=== PATIENT | male | born 1960 | race Caucasian/White ===

== ENCOUNTER 2017-02-27 10:07 | Day surgery (SDC) | payer BC ==
[~2017-02-27] VITALS: Ht 180.3 cm; Wt 99.6 kg
[2017-02-27] VITALS (9 sets, daily range): BP systolic 110–155; BP diastolic 74–88; PULSE 92–134; RESP 16–18; TEMP 97.9–98.7; O2SAT 92–97
[2017-02-27] MEDS ORDERED: SODIUM CHLORID 0.9% 500 ML BAG OTHER ONE (10:08)
[2017-02-27] MEDS ORDERED: SODIUM CHLORID 0.9% 500 ML INJ 500 ML IV SCH (12:00)
[2017-02-27 12:09] LABS: AUTOMATED NEUTROPHIL # 8.2 TH/MM3 (1.8-7.7); BASOPHIL % 0.4 % (0.0-2.0); EOSINOPHIL # 0.2 TH/MM3 (0-0.4); EOSINOPHIL % 1.8 % (0.0-4.0); HEMO FLAGS DIFF FINAL; LYMPH % 12.7 % (9.0-44.0); LYMPHOCYTE # 1.3 TH/MM3 (1.0-4.8); MEAN CELL VOLUME 95.8 FL (80.0-100.0); MEAN CORPUSCULAR HEMOGLOBIN 32.4 PG (27.0-34.0); MEAN CORPUSCULAR HGB CONC 33.8 % (32.0-36.0); MONO % 8.1 % (0.0-8.0); PLATELET COUNT 232 TH/MM3 (150-450); RED BLOOD COUNT 5.11 MIL/MM3 (4.50-5.90); RED CELL DISTRIBUTION WIDTH 13.6 % (11.6-17.2); WHITE BLOOD COUNT 10.6 TH/MM3 (4.0-11.0)
[2017-02-27] MEDS ORDERED: METOPROLOL TARTRATE 25 MG TAB PO PRN (12:15)
[2017-02-27] MEDS ORDERED: CHLORHEXIDINE GLUCONATE 2 % 1 PACK (2 CLOTHS) TOPICAL PRN (12:15)
[2017-02-27] MEDS ORDERED: POVIDONE IODINE 5% (ANTISEPSIS KIT) 4 APPLICATIONS EACH NARE PRN (12:15)
[2017-02-27] MEDS ORDERED: SODIUM CHLORID 0.9% 500 ML IV PRN (12:15)
[2017-02-27] MEDS ORDERED: LACTATED RINGER'S 1000 ML IV PRN (12:15)
[2017-02-27 12:23] LABS: APTT (PATIENT) 26.2 SEC (24.3-30.1)
[2017-02-27 12:28] LABS: POTASSIUM 4.7 MEQ/L (3.5-5.1)
[2017-02-27] MEDS ORDERED: ISOPROTERENOL HCL 1 MG/5 ML AMP ONE (13:24)
[2017-02-27] MEDS ORDERED: PROPOFOL 200 MG/20 ML AMP ONE (13:28)
[2017-02-27] MEDS ORDERED: SODIUM CHLOR 0.9% 250 ML INJ 250 ML ONE (13:28)
[2017-02-27] MEDS ORDERED: ALEV220T14 PO (13:46)
[2017-02-27] MEDS ORDERED: PRAV40TA2 PO (13:46)
[2017-02-27] MEDS ORDERED: OMEP20TA93 PO (13:46)
[2017-02-27] MEDS ORDERED: FURO1TAB62 PO (13:46)
[2017-02-27] MEDS ORDERED: LISI-515 PO (13:46)
[2017-02-27] MEDS ORDERED: XARE20TA PO (13:46)
[2017-02-27] MEDS ORDERED: KLOR10TA PO (13:46)
[2017-02-27] MEDS ORDERED: RESP: ALBUTEROL 2.5 MG/3 ML NEB (SCH) ONE (13:50)
[2017-02-27] MEDS ORDERED: HEPARIN-NS/PF INJ 1,000 ML ONE (14:22)
[2017-02-27] MEDS ORDERED: KETAMINE HCL 500 MG/10 ML VIAL ONE (14:40)
--- NOTE | 2017-02-27 16:37 | CATHPROC ---
[facility] HIS Report Study Information Study Number Admission Scheduled Start Study Start [id number] Feb 27 2017 10:07AM 02/27/2017 Feb 27 2017 11:30AM [facility] Electrophysiology Study Admit Source Facility Department Other [facility] - New Business Clerk Physician and Clinical Staff Initial Jessie Kern Medical Parasitologist Ann Patel,RT(R) TECH2 Other Anesthesia, AUTO ACCESSORIES INSTALLER Recorder Diana Alvarado,BSRN Recorder Lois Mauro,Angelia Sanchez,CASE MANAGER TECH2 Procedures Performed Procedure Ablation Procedure Equipment Time Hydrochloric Area Supervisor Description Size Mfg Part Number Used/Scraped BIOSENSE HORTON CATHETER, DEFLECTABLE [id number] 14:27 FR 7 Used INC. TRICUSPID/HALO XP *[id number] BIOSENSE HORTON CATHETER, DEFLECTABLE, 1MM, [id number] 14:27 FR 6 Used INC. D TYPE HEX *[id number] BIOSENSE HORTON CATHETER, DEFLECTABLE, 1MM, [id number] 14:27 FR 7 Used INC. D TYPE OCTA *[id number] [employer]/ EP CATHETER, FR8 BLAZER II 10MM [id number] 15:28 FR8 Used PACER LRG XP *[id number] 12:02 [employer] LEADWIRE, DEFIBRILLATION PAD 2001M-PC Used [id number] 12:02 [place] PACK, CCL CUSTOM * Used *[id number] 12:02 MEDLINE PACER CURRY, LIMB * 2530 *[id number] Used [id number] 12:02 [employer] BLANKET,WARM AIR CCL * Used *[id number] 14:28 [employer] MEDICAL CATHETER, JSN, QUAD FR 5 Used *[id number] 12:02 [employer] MEDICAL ELECTRODE KIT, [place] X SURFACE * [id number] [employer] MED[employer] SHEATH, EPS, FR7 FAST CATH FR 7 [id number] Used 12:04 [employer] MEDICAL SHEATH, EPS, FR7 FAST CATH FR [address] [id number] Used 12:04 [employer] MEDICAL SHEATH, EPS, FR7 FAST CATH FR [address] [id number] Used 14:15 [employer] MEDICAL SHEATH, EPS, FR7 FAST CATH FR 7 [id number] Used [id number] 12:04 [employer] MEDICAL SHEATH, EPS, FR8 FAST CATH FR 8 Used *[id number] [employer] PAD, ELECTROSURGICAL 12:02 * [id number] *[id number] Used SURGICAL GROUNDING (BLUE) [employer] PAD, ELECTROSURGICAL 12:02 * [id number] *[id number] Used SURGICAL GROUNDING (BLUE) History: Current Medications Medication Dosage/Unit Route Frequency Last Date/Time Taken LISINOPRIL Statins (any) XARELTO History: Allergies Allergy Reaction No Known Allergies History: Risk Factors Family History of Hypertension Dyslipidemia Premature CAD Yes Yes Yes Chronic Lung Disease Labs Hgb (g/dl) Hct (%) RBC (MIL/MM3) WBC (l/cumm) Platelets (thousands) 11.60-17.00 35.00-51.00 4.00-5.90 4.00-11.00 150.00-450.00 16.5 49 5.1 10.6 232 Glucose (mg/dl) BUN (mg/dl) Creatinine (mg/dl) BUN:Creatinine (1:x) 74.00-106.00 7.00-18.00 0.50-1.30 10.00-20.00 130 34 1.0 34 Na (meq/l) K (meq/l) Cl (meq/l) CO2 (mmol/L) Ca (mg/dl) 136.00-145.00 3.50-5.10 98.00-107.00 21.00-32.00 8.50-10.10 139 4.7 107 25 8.9 INR (PTT:PT) 0.90-1.10 1 Medication Medication Total Dose (Bolus/Oral) Medication Total Dosage/Unit 1% XYLOCAINE 40 mL Medications (Bolus/Oral) Medication Time Given Dosage/Unit Administered By Reason 1% XYLOCAINE 02/27/2017 3:00:37 PM 20 mL Jessie Al As per physicians verb al order 20 mL 1% XYLOCAINE given in lab by Jessie Al in Left Groin via Subcutaneous. Ordered by Jessie Al. Reason: As per physicians verbal order. 1% XYLOCAINE 02/27/2017 3:04:06 PM 20 mL Jessie Al As per physicians verb al order 20 mL 1% XYLOCAINE given in lab by Jessie Al in Right Groin via Subcutaneous. Ordered by Jessie Kitchen. Reason: As per physicians verbal order. Initial Case Assessment Cardiovascular HR NIBP Chest Pain 127 119/80 0 Edema Present Skin color Skin None Normal Warm Dry Neurological State Oriented to time-place- Alert Moves all extremities person Respiration - General Respiration Rate SpO2 (%) (B/min) 20 99 Final Case Assessment Cardiovascular HR NIBP 87 157/87 Edema Present Skin color Skin None Normal Warm Dry Neurological State Oriented to time-place- Alert person Respiration - General Respiration Rate SpO2 (%) (B/min) 20 100 Chronological Log Time Study Chronological Log 14:01:41 Patient arrived via Bed. 14:01:43 Patient Name, D.O.B, / Armband Verified By R.N. 14::44 Consent signed by the physician and the patient and verified by the New Business Clerk staff. 14:01:45 Pre-op and post- op instructions given; patient acknowledges understanding of instructions. 14:01:48 Verbal Stimulation=2 Physical Stimulation=2 Airway=2 Respiration=2 TOTAL=8. (0=absent, 1=li mited, 2=present) 14:01:48 Anesthesia at bedside. Assumes care of patient. Ella 14:02:05 Patient has been NPO for More than 6Hrs. 14:02:05 Skin Breakdown- scrapes on arms and hands with generalized bruising 14:02:06 Patient Warmer Placed on the Table. 14:02:07 Disposable Defibrillator Pads Placed On Patient. 14:02:09 Deedee Prominences Protected 14:02:10 A # 20 IV was noted in the Forearm (right). Grade = 0 0.9ns kvo 14:02:11 A # 20 IV was noted in the Forearm (left). Grade = 0 0.9ns kvo 14:02:12 History and physical on the chart or being dictated. Assessment: Initial Case, FV=658 BPM, CAKS=734/80 mmhg, Chest Pain=0, Edema=None, Color=Normal, Skin = Warm, Dry 14:12:55 Neurological: State=Alert, Ox3, VARMA Respiration: Resp=20 B/min, SpO2=99 % 14:13:24 Table restraints applied according to hospital policy 14:13:34 Right groin prepped with 2% chlorhexidine, and draped after a 3 min. waiting time. 14:13:37 Left groin prepped with 2% chlorhexidine, and draped after a 3 min. waiting time. 14:35:08 MD notified ready. 14:47:45 MD arrived. 14:48:48 Reference ECG taken 14:48:52 Immediate Presedation assesment performed by physician. Time Out. Correct patient, procedure, procedure equipment, site and side verified with physicia n present. Time 14:49:40 concurred by MD, individual staff and AUTO ACCESSORIES INSTALLER. Time Out #2 - Consents verified, patient in correct position, all results are labled and displa yed, safety precautions 14:49:44 taken, antibiotics administered. Time out concurred by MD, individual staff and AUTO ACCESSORIES INSTALLER in procedu re 14:49:48 Case Start 14:50:10 JIMENEZ begun at bedside. 14:54:49 JIMENEZ completed. 20 mL 1% XYLOCAINE given in lab by Jessie Al in Left Groin via Subcutaneous. Ordered by Jessie Yu. 15:00:37 Reason: As per physicians verbal order. 15:02:10 Vascular access was obtained in the Fem Vein (left). 15:02:18 Vascular access was obtained in the Fem Vein (left). 15:02:49 Vascular access was obtained in the Fem Vein (left). 20 mL 1% XYLOCAINE given in lab by Jessie Al in Right Groin via Subcutaneous. Ordered by Jessie Al. 15:04:06 Reason: As per physicians verbal order. 15:04:18 Vascular access was obtained in the Fem Vein (right). 15:04:22 Vascular access was obtained in the Fem Vein (right). 15:05:39 A SHEATH, EPS, FR7 FAST CATH FR 7 was advanced into the Fem Vein (left) using the Percutane ous technique. 15:05:49 A SHEATH, EPS, FR7 FAST CATH FR 7 was advanced into the Fem Vein (left) using the Percutane ous technique. 15:05:59 A SHEATH, EPS, FR7 FAST CATH FR 7 was advanced into the Fem Vein (left) using the Percutane ous technique. 15:06:11 A SHEATH, EPS, FR7 FAST CATH FR 7 was advanced into the Fem Vein (right) using the Percutan eous technique. 15:06:21 A SHEATH, EPS, FR8 FAST CATH FR 8 was advanced into the Fem Vein (right) using the Percutan eous technique. A CATHETER, JSN, QUAD FR 5 was advanced vis Fem Vein (left) and placed in the CS. Placement was visually 15:07:35 confirmed under fluoroscopy. A CATHETER, DEFLECTABLE TRICUSPID/HALO XP FR 7 was advanced vis Fem Vein (left) and placed in t HRA. 15:08:12 Placement was visually confirmed under fluoroscopy. A CATHETER, DEFLECTABLE, 1MM, D TYPE OCTA FR 7 was advanced vis Fem Vein (left) and placed in t HIS. 15:14:10 Placement was visually confirmed under fluoroscopy. A CATHETER, DEFLECTABLE, 1MM, D TYPE HEX FR 6 was advanced vis Fem Vein (right) and placed in t LRA. 15:15:32 Placement was visually confirmed under fluoroscopy. LRA 15:19:09 EP Study in progress. A CATHETER, FR8 BLAZER II 10MM LRG XP FR8 was advanced vis Fem Vein (right) and placed in the I sthmus. 15:27:50 Placement was visually confirmed under fluoroscopy. 15:28:15 Ablation in progress. 16:11:53 Ablation catheter removed. 16:12:47 Ablation complete. 16:13:19 Catheters removed. 16:14:06 Ablation procedure performed: Aflutter. 16:14:15 EP Procedure was performed. Assessment: Final Case, HR=87 BPM, HZSX=857/87 mmhg, Edema=None, Color=Normal, Skin = Warm, Dr y 16:16:15 Neurological: State=Alert, Ox3 Respiration: Resp=20 B/min, PoX3=402 % 16:19:17 Sheaths removed by Angelia Salvador and Lois Mauro. pressure applied to access sites. Hemo stasis achieved. 16:21:41 No case complications noted. 16:21:43 Cine recording checked. 16:21:47 Holding Area notified of successful intervention. 16:21:52 Bedside Report will be given. 16:21:54 Defibrillator and ground pads removed. Skin intact. 16:24:14 Case End 16:36:[address] [facility] and [facility]. End Study - Contrast Media Used In Study Contrast Total Opened (mL) Total Used (mL) Total Wasted (mL) Unspecified 0 0 0 End Study - Maximum Contrast Load Max Contrast Load (mL) 499.1 End Study - Radiation Exposure Fluoro Time (minutes) 16.9 End Study - Patient Disposition Complications Transferred To Interventional Outcome No Telemetry Bed successful
[2017-02-27] MEDS ORDERED: SODIUM CHLOR 0.9% 1000 ML INJ 500 ML IV SCH (16:45)
[2017-02-27] MEDS ORDERED: ACETAMINOPHEN 325 MG TAB PO PRN (18:00)
--- NOTE | 2017-02-27 21:41 | MR ---
cc: PILAR LEVY DATE 02/27/17 INDICATION Atrial flutter with rapid ventricular response, tachycardia induced cardiomyopathy, atrial fibrillation/atrial flutter. PROCEDURE PERFORMED 1. Comprehensive electrophysiology study with right atrial and right ventricular pacing and sensing. 2. Coronary sinus cannulation with coronary sinus pacing and sensing. 3. 3D mapping. 4. Supraventricular tachycardia ablation. ACCESS SITE Left and right femoral veins. EQUIPMENT USED Dodecapolar Halo catheter, quadripolar catheter in coronary sinus, hexapolar catheter in the right ventricular apex and left atrium, octapolar catheter in the His bundle region, Blazer 2 10 mm large curve ablation catheter. COMPLICATIONS None. BLOOD LOSS Less than 10 cc. METHOD OF HEMOSTASIS Manual compression. RESULTS 1. Baseline EKG: atrial flutter with 2:1 block and rapid ventricular response, normal axis. 2. Baseline intervals (milliseconds): Preablation cycle length 454, QRS 120, QT 350. Post ablation RR 652, AR 194, QRS 94, QTC 424, AH 120, HV 50. 3. Right atrial programmed electrical stimulation: Right atrial programmed stimulation was performed at baseline. Post pacing intervals localized the atrial flutter to the right atrium. The flutter was using the isthmus and was counterclockwise. 4. Coronary sinus stimulation: Coronary sinus stimulation was performed at baseline. No arrhythmias were induced. 5. Right ventricular programmed stimulation: Right ventricular stimulation was performed at baseline. No arrhythmias were induced. 6. Arrhythmias: Typical counterclockwise atrial flutter with flutter cycle length 250 milliseconds. 7. Radiofrequency ablation: Radiofrequency ablation was performed. Three distinct lines were created across the isthmus. The flutter terminated at the end of the first line but right atrial pacing only confirmed block across the isthmus in the clockwise direction. After the second line there was evidence of bidirectional block. A third line was created and again there was evidence of bidirectional block. POST ABLATION STUDY Post ablation study was performed. There was evidence of bidirectional block. No atrial arrhythmias were induced with right atrial burst pacing. DIAGNOSIS 1. Typical counterclockwise atrial flutter with rapid ventricular response. 2. Successful ablation of typical counterclockwise atrial flutter. DISPOSITION Mr. Lee will be monitored on telemetry after his procedure. We will restart anticoagulation with Xarelto. His transesophageal echocardiogram prior to the study showed no evidence of right atrial thrombus. The patient will be discharged home tomorrow if stable. He will be seen back for followup in Dr. Guzman's office after discharge. MD MARTHA Carr/ELIZABET /4:34 PM /8:59 PM ARMANDO
[2017-02-28 00:41] VITALS: BP 118/64; PULSE 100; RESP 16; TEMP 98.6; O2SAT 93
[2017-02-28 03:52] VITALS: BP 111/75; PULSE 95; RESP 16; TEMP 98.7; O2SAT 96
[2017-02-28 07:00] VITALS: BP 135/78; PULSE 95; RESP 18; TEMP 98.1; O2SAT 96
[2017-02-28] MEDS ORDERED: PANTOPRAZOLE SOD 20 MG DELAYED RELEASE TAB PO SCH (09:00)
[2017-02-28] MEDS ORDERED: FUROSEMIDE 20 MG TAB PO SCH (09:00)
[2017-02-28] MEDS ORDERED: PRAVASTATIN SOD 40 MG TAB PO SCH (09:00)
[2017-02-28] MEDS ORDERED: RIVAROXABAN 20 MG TAB PO SCH (09:00)
[2017-02-28] MEDS ORDERED: POTASSIUM CHLORIDE 10 MEQ CONTROLLED RELEASE TAB PO SCH (09:00)
[2017-02-28] MEDS ORDERED: LISINOPRIL 20 MG TAB PO SCH (09:00)
--- NOTE | 2017-02-28 09:14 | EKG ---
Date Performed: 02/27/2017 Time Performed: 18:06:40 PTAGE: 57 years EKG: Sinus rhythm with borderline 1st degree A-V block Rightward axis Borderline ECG NO PREVIOUS TRACING DOCTOR: Serafin Allen Interpretating Date/Time 02/28/2017 09:13:27
[2017-02-28 11:37] VITALS: BP 128/63; PULSE 83; RESP 19; TEMP 98.3; O2SAT 97
--- NOTE | 2017-02-28 14:34 | HHI.DS ---
Discharge Summary Admission Date 02/27/2017 Discharge Date: Feb 28, 2017 Admitting Diagnosis Afib Procedures Afib ablation Brief History hypertension, hlp, smoker, copd, afib CBC/BMP: 02/27/17 1115 02/27/17 1115 Significant Findings Laboratory Tests Test 02/27/17 11:15 Neutrophils (%) (Auto) 77.0 % (16.0-70.0) Monocytes (%) (Auto) 8.1 % (0.0-8.0) Neutrophils # (Auto) 8.2 TH/MM3 (1.8-7.7) Blood Urea Nitrogen 34 MG/DL (7-18) Random Glucose 130 MG/DL (74-106) Estimat Glomerular Filtration Rate 71 ML/MIN (>89) Discharge Instructions DIET: Follow Instructions for: Heart Healthy Diet Activities you can perform: Regular-No Restrictions Activities to avoid: Lifting/Bending (no heavy lifting), Strenuous Activity Additional Information follow up with Dr. Al 1-2 weeks Rachelle Dimas Feb 28, 2017 14:33
--- NOTE | 2017-02-28 16:03 | EKG ---
Date Performed: 02/28/2017 Time Performed: 04:22:54 PTAGE: 57 years EKG: Sinus rhythm . Rightward axis Compared to prior tracing no significant change Borderline ECG PREVIOUS TRACING : 02/27/17 1806 DOCTOR: Serafin Allen Interpretating Date/Time 02/28/2017 16:02:33
--- NOTE | 2017-03-02 15:03 | CF ---
cc: PILAR LEVY PROCEDURE PERFORMED Transesophageal echocardiogram. INDICATION Atrial flutter, evaluation for left atrial thrombus. PROCEDURE After the patient was sedated by Anesthesia, a transesophageal probe was placed without difficulty. Tomographic images were obtained. Left ventricular function was decreased to a moderate degree. The mitral valve was mildly thickened, there was evidence of mild mitral regurgitation. The aortic valve was thickened. There was no evidence of aortic stenosis or aortic insufficiency. The tricuspid valve was structurally normal. There was evidence of mild tricuspid regurgitation. The left atrial appendage was well-visualized and there was no evidence of left atrial thrombus. A bubble study was performed and there was no evidence of [id number] shunt. The descending thoracic aorta had mild plaque. DIAGNOSIS 1. No evidence of left atrial thrombus. 2. No evidence of patent foramen ovale. 3. Moderate left ventricular systolic dysfunction. 4. Mild mitral regurgitation. 5. Mild tricuspid regurgitation. IMPRESSION No evidence of left atrial thrombus. MD MARTHA Carr/SU /4:41 PM /3:02 PM ARMANDO
== END 2017-02-28 14:52 | disposition home or self-care (01) ==
LOC: HDIC 10:07 → HCAT 10:07 → HCPC 18:18 → HCAT 02-28 14:52
PROVIDERS: ATTEND Internal Medicine Interventional Cardiology
DX: I47.1 Supraventricular tachycardia (principal); I48.91 Unspecified atrial fibrillation; I48.92 Unspecified atrial flutter; I42.9 Cardiomyopathy, unspecified; I10 Essential (primary) hypertension
CPT/HCPCS: 00537; 80048; 85025; 85610; 85730; 93005; 93312; 93320; 93325; 93613; 93623; 93653; C1730; C1732; C2630; J1644; J7030; J7040; J7050; J7613; 93620